=== PATIENT | male | born 1980 | race Caucasian/White ===

== ENCOUNTER 2019-02-03 13:32 | Emergency (ER) | payer MEDICAID ==
[~2019-02-03] VITALS: Ht 180.3 cm; Wt 113.4 kg
[2019-02-03 13:37] VITALS: BP 143/80; Ht 180.3 cm; Wt 113.4 kg
== END 2019-02-03 14:20 | disposition home or self-care (01) ==
LOC: ED 13:32
DX: H61.21 Impacted cerumen, right ear (principal)

== ENCOUNTER 2019-04-25 21:39 | Emergency (ER) | payer MEDICAID ==
[~2019-04-25] VITALS: Ht 180.3 cm; Wt 115.7 kg
[2019-04-25 21:56] VITALS: Ht 180.3 cm; Wt 115.7 kg
[2019-04-25 23:53] VITALS: BP 146/102
== END 2019-04-25 23:53 | disposition home or self-care (01) ==
LOC: ED 21:39
DX: J03.90 Acute tonsillitis, unspecified (principal)
CPT/HCPCS: J2920

== ENCOUNTER 2019-05-10 18:51 | Emergency (ER) | payer MEDICAID ==
[~2019-05-10] VITALS: Ht 180.3 cm; Wt 116.1 kg
[2019-05-10 18:55] VITALS: Ht 180.3 cm; Wt 116.1 kg
[2019-05-10 20:35] VITALS: BP 145/85
== END 2019-05-10 20:35 | disposition home or self-care (01) ==
LOC: ED 18:51
DX: J03.90 Acute tonsillitis, unspecified (principal)
CPT/HCPCS: J2930